=== PATIENT | female | born 1980 | race Caucasian/White ===

== ENCOUNTER 2018-10-12 18:55 | Emergency (ER) | payer MEDICAID ==
[~2018-10-12] VITALS: Ht 152.4 cm; Wt 65.5 kg
[2018-10-12 19:03] VITALS: Ht 152.4 cm; Wt 65.5 kg
[2018-10-12] MEDS ORDERED: TETRACAINE 0.5% 4 ML OPH RIGHT EYE ONE (20:00)
[2018-10-12] MEDS ORDERED: FLUORESCEIN STRIP RIGHT EYE ONE (20:00)
[2018-10-12] MEDS ORDERED: ACETAMINOPHEN 500 MG TAB PO STA (20:32)
--- NOTE | 2018-10-12 21:05 | ERD ---
ER Documentation Chief Complaint Chief Complaint right eye pain/swelling right eyelid, ground level fall x 1 1/2hour ago.-ko HPI Patient is a 38-year-old female with no past medical history presents the ER for concerns of right eye pain and eyelid swelling after a trip and fall injury earlier today. Patient states she was doing Easter egg ferreira with her children when she tripped and hit a tree. Patient denies any blurry vision. Patient sta delphine she has some bleeding within her eye that is concerning to her. Patient denies any contact lens use. Patient denies any vision correction. Patient has no headache. She denies any vomiting, acute confusion, excessive sleepiness or loss of consciousness after injury. Patient denies any dizziness or lightheadedness. ROS All systems reviewed and are negative except as per history of present illness. Allergies Allergies: Coded Allergies: No Known Allergy (Verified Allergy, Unknown, 11/25/10) PMhx/Soc Medical and Surgical Hx: pt denies Medical Hx, pt denies Surgical Hx Hx Alcohol Use: No Hx Substance Use: No Hx Tobacco Use: No Smoking Status: Never smoker FmHx Family History: No diabetes Physical Exam Vitals Vital Signs Date Temp Pulse Resp B/P (MAP) Pulse Ox O2 O2 Flow FiO2 Time Delivery Rate 10/12/18 98.4 73 18 132/70 99 19:03 (90) Physical Exam GENERAL: Well-developed, well-nourished female. Appears in no acute distress. HEAD: Normocephalic, atraumatic. EYE: Visual acuity w/ Snellen eye chart: See interventions. Normal eye alignment. No orbital swelling or erythema. No proptosis. Pupils equal, round, and reactive to light. EOMs intact. No pain with EOMs. No evidence of muscle entrapment. Subconjunctival hemorrhage noted on the right aspect of the right eye. No scleral icterus. No eye discharge. Anterior chamber clear. No hyphema or hypopion. Swelling and mild ecchymosis noted to the upper right eyelid. Wood's lamp exam: No foreign bodies, corneal abrasions or ulcerations visualized with fluorescein dye. Negative Lida sign. ENT: Moist mucous membranes. No uvula deviation. No kissing tonsils. NECK: Supple. No meningismus. Normal range of motion of the neck. No cervical midline tenderness. LUNG: Clear to auscultation bilaterally. No rhonchi, wheezing, rales or coarse breath sounds. HEART: Regular rate and rhythm. No murmurs, rubs or gallops. EXTREMITIES: Equal pulses bilaterally. No peripheral clubbing, cyanosis or edema. No unilateral leg swelling. NEUROLOGIC: Alert and oriented. Moving all four extremities without any difficulty. Normal speech. Steady gait. SKIN: Normal color. Warm and dry. No rashes or lesions. Results 24 hrs Current Medications Medications Dose Sig/Vinny Start Time Status Last (Trade) Ordered Route PRN Stop Time Admin Dose Reason Admin Fluorescein 1 strip ONCE ONCE 10/12/18 DC Sodium RIGHT EYE 20:00 (Jimee-K-Elhv 10/12/18 20:01 p) Tetracaine 1 drop ONCE ONCE 10/12/18 DC HCl RIGHT EYE 20:00 (Tetracaine 10/12/18 20:01 0.5% Steri-Unit Christine) 1,000 mg ONCE STAT 10/12/18 DC 10/12/18 Acetaminophen PO 20:32 20:38 (Tylenol 10/12/18 20:33 Tab) Procedures/MDM ED COURSE: The patient was stable throughout ED course. I kept the patient and/or family informed of laboratory and diagnostic imaging results throughout the ED course. DIAGNOSTIC IMAGING: Read by radiologist. Patient: AROLDO BRAUN : 1980 Age: 38 Sex: F MR #: [id number] DOS: 10/12/182028 Ordering MD: TARYN MATHIS PA-C Location: [facility] Room/Bed: PROCEDURE: XR orbits CLINICAL INDICATION: Right orbital pain. TECHNIQUE: 5 views of the orbits are available for review. COMPARISON: No prior studies are available for comparison. FINDINGS: No fracture is identified. The paranasal sinuses and mastoid air cells are clear. The sella turcica is normal sized. IMPRESSION: Normal orbital x-rays. RPTAT: HTAR .Iron Quezada MD, Date Time Electronically viewed and signed by .Iron Quezada MD, on 10/12/2018 21:50 .R/ CC: TARYN MATHIS PA-C [id number] PROCEDURES: None. MEDICATIONS GIVEN: Tylenol Patient tolerated medication well with no adverse reactions. Patient reported improvement in pain. MEDICAL DECISION MAKING: This is a 38-year-old female presents the ER for concerns of right eye pain and swelling after a trip and fall injury earlier today.. Vital signs were reviewed. Patient was afebrile. See visual acuity under interventions. On exam, patient was noted to have a sub-conjunctival hemorrhage. Under fluorescein stain no evidence of globe rupture or retained foreign bodies. Imaging of the orbit was negative for orbital fracture. Given that patient did have trauma to the eye patient will be treated with course of eye antibiotics to prevent infection. Patient was advised to follow-up with an eye doctor in the next 1-2 days for reevaluation of symptoms. At this time, patient presentation is most consistent with subconjunctival hemorrhage and orbital rim pain and swelling. Low suspicion for orbital rim fracture, retained foreign body, muscle entrapment, globe rupture. She was nontoxic, non-opening prior to discharge. Case discussed with supervising physician Dr. Rose who also examined the patient. He agreed that patient was stable for outpatient management. PRESCRIPTIONS: Polytrim DISCHARGE: At this time, patient is stable for discharge and outpatient management. Supportive measures were discussed with patient including warm/cool compresses. Patient advised not to wear contact lenses or eye makeup. I have instructed the patient to follow-up with his/her primary care physician in 1-2 days. I have discussed with the patient the possibility of needing to see an seeing eye dog trainer for further workup if symptoms persist. I have instructed the patient to promptly return to the ER for any new or worsening symptoms including increased pain, fever, swelling, redness, warmth, nausea, vomiting, . The patient and/or family expressed understanding of and agreement with this plan. All questions were answered. Home care instructions were provided. Disclaimer: Inadvertent spelling and grammatical errors are likely due to EHR/dictation software use and do not reflect on the overall quality of patient care. Also, please note that the electronic time recorded on this note does not necessarily reflect the actual time of the patient encounter. Departure Diagnosis: Primary Impression: Traumatic subconjunctival hemorrhage of right eye Condition: Fair Patient Instructions: Subconjunctival Hemorrhage Referrals: [facility] YOU HAVE RECEIVED A MEDICAL SCREENING EXAM AND THE RESULTS INDICATE THAT YOU DO NOT HAVE A CONDITION THAT REQUIRES URGENT TREATMENT IN THE EMERGENCY DEPARTMENT. FURTHER EVALUATION AND TREATMENT OF YOUR CONDITION CAN WAIT UNTIL YOU ARE SEEN IN YOUR DOCTORS OFFICE WITHIN THE NEXT 1-2 DAYS. IT IS YOUR RESPONSIBILITY TO MAKE AN APPOINTMENT FOR FOLOW-UP CARE. IF YOU HAVE A PRIMARY DOCTOR --you should call your primary doctor and schedule an appointment IF YOU DO NOT HAVE A PRIMARY DOCTOR YOU CAN CALL OUR PHYSICIAN REFERRAL HOTLINE AT IF YOU CAN NOT AFFORD TO SEE A PHYSICIAN YOU CAN CHOSE FROM THE FOLLOWING [facility] [address] [facility] [address] [facility] [facility] [address] [facility] [address] [facility] [address] [facility] [address] [facility] [address] [facility]. [facility] YOU HAVE RECEIVED A MEDICAL SCREENING EXAM AND THE RESULTS INDICATE THAT YOU DO NOT HAVE A CONDITION THAT REQUIRES URGENT TREATMENT IN THE EMERGENCY DEPARTMENT. FURTHER EVALUATION AND TREATMENT OF YOUR CONDITION CAN WAIT UNTIL YOU ARE SEEN IN YOUR DOCTORS OFFICE WITHIN THE NEXT 1-2 DAYS. IT IS YOUR RESPONSIBILITY TO MAKE AN APPOINTMENT FOR FOLOW-UP CARE. IF YOU HAVE A PRIMARY DOCTOR --you should call your primary doctor and schedule and appointment IF YOU DO NOT HAVE A PRIMARY DOCTOR YOU CAN CALL OUR PHYSICIAN REFERRAL HOTLINE AT . IF YOU CAN NOT AFFORD TO SEE A PHYSICIAN YOU CAN CHOSE FROM THE FOLLOWING [facility] INSTITUTIONS: [facility] [address] [place] [address] [facility] [address] [place] [address] [facility] [address] [place] [address] [facility] Hours: Mon - Fri 9:00 AM - 5:00 PM Additional Instructions: Llame al doctor de sunday SANDI y jf felecia DILAN PARA DENTRO DE 1-2 VINCENT.Dgale a la secretaria que nosotros le instruimos hacer esta dilan.Avise o llame si beckett condicin se empeora antes de la dilan. Regresa aqui si peor o no mejor. TARYN MATHIS PA-C Oct 12, 2018 21:05
[2018-10-12] MEDS ORDERED: ACET500C5 PO (21:55)
[2018-10-12] MEDS ORDERED: POLY10DR19 RIGHT EYE (21:55)
[2018-10-12 22:08] VITALS: BP 124/74; PULSE 67; RESP 18
== END 2018-10-12 22:09 | disposition home or self-care (01) ==
LOC: FTE 18:55
DX: S00.11XA Contusion of right eyelid and periocular area, initial encounter (principal); W01.198A Fall on same level from slipping, tripping and stumbling with subsequent striking against other object, initial encounter; Y92.9 Unspecified place or not applicable
CPT/HCPCS: 70200; Z7502; Z7610